=== PATIENT | female | born 1975 | race Caucasian/White ===

== ENCOUNTER → 2017-03-12 | Outpatient (REF) | payer BC ==
[2017-03-12 14:31] LABS: INFLUENZA A AMPLIFICATION NEGATIVE (NEGATIVE); INFLUENZA B AMPLIFICATION NEGATIVE (NEGATIVE); RSV AMPLIFICATION NEGATIVE (NEGATIVE)
== END ==
LOC: M LAB REF 12:57
DX: J11.1 Influenza due to unidentified influenza virus with other respiratory manifestations (principal)
CPT/HCPCS: 87631

== ENCOUNTER 2018-09-15 07:09 | Day surgery (SDC) | payer BC ==
[~2018-09-15] VITALS: Ht 160 cm; Wt 76.4 kg
[2018-09-15] VITALS (8 sets, daily range): BP systolic 125–144; BP diastolic 61–96
[~2018-09-15 07:09] MED LIST: BIOT1TAB PO; LIDOCAINE 1% MDV 20ML VIAL SQ PRN; LR 1,000 ML IV ONE; NEUR300C PO; VITA200028 PO
[2018-09-15 07:24] LABS: HEMATOCRIT 39.6 % (36.0-47.0); HEMOGLOBIN 13.2 g/dl (12.0-15.5); MEAN CORPUSCULAR HEMOGLOBIN 30.6 pg (27.0-33.0); MEAN CORPUSCULAR HGB CONC 33.3 g/dl (32.0-36.5); MEAN CORPUSCULAR VOLUME 91.9 fl (80.0-96.0); PLATELET COUNT, AUTOMATED 177 10^3/uL (150-450); RED BLOOD COUNT 4.31 10^6/uL (4.00-5.40); WHITE BLOOD COUNT 5.4 10^3/uL (4.0-10.0)
[2018-09-15] MEDS ORDERED: MIDAZOLAM INJ 2 MG/2 ML VIAL (J2250) As Ordered ONE (09:54)
[2018-09-15] MEDS ORDERED: dexameTHASONE 4 MG/ML 1ML VIAL (J1100) As Ordered ONE (09:54)
[2018-09-15] MEDS ORDERED: PROPOFOL 200 MG/20 ML VIAL As Ordered ONE ×2 (09:54→11:37)
[2018-09-15] MEDS ORDERED: SUGAMMADEX SODIUM 500 MG/5 ML VIAL (BRIDION) As Ordered ONE (09:54)
[2018-09-15] MEDS ORDERED: ROCURONIUM BROMIDE 50 MG/5 ML VIAL As Ordered ONE ×2 (09:54→10:06)
[2018-09-15] MEDS ORDERED: ACETAMINOPHEN 1000MG 100ML IV BTL (OFIRMEV) (J0131 PER 10MG) As Ordered ONE (09:54)
[2018-09-15] MEDS ORDERED: HYDROmorphone HCL 2 MG/ML 1ML VIAL (J1170) As Ordered ONE (09:54)
[2018-09-15] MEDS ORDERED: LIDOCAINE 2% INJ 100 MG/5 ML SDV (FOR ANES.) As Ordered ONE (09:54)
[2018-09-15] MEDS ORDERED: ONDANSETRON 4MG/2ML VIAL (J2405) As Ordered ONE (09:54)
[2018-09-15] MEDS ORDERED: fentaNYL 100 MCG/2 ML INJECTION (J3010) As Ordered ONE ×2 (09:54→13:06)
[2018-09-15] MEDS ORDERED: KETOROLAC 60 MG/2 ML VIAL (J1885) As Ordered ONE (09:54)
[2018-09-15] MEDS ORDERED: ePHEDrine SULFATE 25 MG/5 ML(5MG/ML) SYRINGE As Ordered ONE (10:01)
[2018-09-15] MEDS ORDERED: METOCLOPRAMIDE INJ 10MG/2ML VIAL (J2765) As Ordered ONE ×2 (10:01→13:06)
[2018-09-15] MEDS ORDERED: GLYCOPYRROLATE INJ 0.2 MG/ML 2 ML VIAL As Ordered ONE (10:14)
[2018-09-15] MEDS ORDERED: LR 1,000 ML IV SCH (12:15)
[2018-09-15] MEDS ORDERED: oxyCODONE 5MG TAB PO PRN (12:15)
[2018-09-15] MEDS ORDERED: MORPHINE 1MG/ML IN 0.9% NACL 100ML IV BAG As Ordered ONE (12:21)
[2018-09-15] MEDS ORDERED: EPIDURAL/PCA KEYS XX PRN (12:30)
[2018-09-15] MEDS ORDERED: diphenhydrAMINE INJ 50MG/ML VIAL (J1200) IV PRN (12:30)
[2018-09-15] MEDS ORDERED: NALOXONE INJ 0.4 MG/1 ML VIAL (J2310) IV PRN (12:30)
[2018-09-15] MEDS ORDERED: NALBUPHINE HCL 10 MG/ML AMP (J2300) IV PRN (12:30)
[2018-09-15] MEDS ORDERED: MORPHINE 1MG/ML IN 0.9% NACL 100ML IV BAG IV PRN (12:30)
[2018-09-15] MEDS: fentaNYL 100 MCG/2 ML INJECTION (J3010) IV PRN ×4 (12:35→12:50)
[2018-09-15] MEDS ORDERED: FLUO20CA19 PO (12:41)
[2018-09-15] MEDS ORDERED: PROMETHAZINE INJ 25 MG/ML VIAL (J2550) As Ordered ONE (13:06)
[2018-09-15] MEDS: fentaNYL 100 MCG/2 ML INJECTION (J3010) IV SCH ×2 (13:10→13:15)
[2018-09-15] MEDS ORDERED: METOCLOPRAMIDE INJ 10MG/2ML VIAL (J2765) IV PRN (13:15)
[2018-09-15] MEDS ORDERED: PROMETHAZINE INJ 25 MG/ML VIAL (J2550) IV PRN (13:15)
[2018-09-15] MEDS: LR 1,000 ML IV SCH ×2 (13:34→20:49)
--- NOTE | 2018-09-15 13:47 | RO ---
DATE OF PROCEDURE: 09/15/2018 PREPROCEDURE DIAGNOSIS: Pain and failed ablation. POSTPROCEDURE DIAGNOSIS: Pain and failed ablation. PROCEDURE: Laparoscopic assisted vaginal hysterectomy with bilateral oophorectomy and salpingectomy, although the patient had a previous tubal, so much of the tube on the right side was already gone. SURGEON: Dr. Francheska Pickering. GROUP CARE WORKER: Kelli Juarez NP ANESTHESIA: General endotracheal anesthesia. SPECIMEN: Uterus, ovaries and tubes. DESCRIPTION OF PROCEDURE: Ne was brought to the operating room where sufficient general endotracheal anesthesia was induced and she was prepped and draped and positioned in the usual sterile fashion. The Maguire with the ability to backfill was placed and the uterine manipulator was placed. Attention was then turned to the abdomen. A transverse semilunar incision was made below the umbilicus and sharp and blunt dissection continued through the subcutaneous tissues to the level of the rectus fascia, which was elevated with a Mary Jo clamps transversely incised under direct visualization and the peritoneum then directly entered under direct visualization in an open laparoscopic technique. 0 Vicryl retention sutures were placed in the fascia. The Nino cannula was placed and it was secured in place with the 0 Vicryl retention sutures and CO2 insufflation was then begun. After adequate CO2 insufflation, the peritoneal cavity was visualized. There were normal shiny peritoneal surfaces throughout. There was some minor adhesions at the descending colon along the left lateral abdomen and pelvis sidewall and these were photographed. They did obscure access to the left ovary briefly so we did take those down. Other than minimal scarring and scar tissue changes of the fallopian tubes and I think one or two fimbria were left after the ovary but there was not a distal fallopian tube on the right side in place. Just scar tissue, again consistent with the patient's previous tubal ligation history. Attention was turned to the dissection with the cold scissors used to down those adhesions on the left side freeing up the bowel so we could have better access to the ovary and with Trendelenburg and uterine manipulator use, we were able to isolate the infundibulopelvic ligaments for which the #44 Enseal articulating dissector was used to cauterize and then transect these pedicles working carefully through the infundibulopelvic ligaments, first on the left side, then the right. Then working through the round ligaments as well, left side than the right and then the cold scissors were used to cut the bladder flap to dissect the broad ligament posteriorly so that we can let the ureters to drop away from the field. Having dissected on top, freed the ovaries and tubes, and round ligaments, and dissected the broad as noted and created the bladder flap, we then turned our attention to the vaginal portion of the case. With the CO2 allowed to escape the abdomen, and the trocar left in place but the instruments removed and attention turned to the pelvis. Working vaginally, the uterine manipulator was removed. Single tooth tenacula were placed on the cervix and the retractor was placed and a circumferential incision was then made around the base of the cervix transecting the vaginal epithelium allowing the isolation of the cardinal ligament which was then clamped, transected and ligated using the Ortega clamps, which were used throughout this portion of the case and 0 Vicryl suture. We then clamped, transected and ligated the uterosacral ligament to the peritoneum posteriorly and then freed the bladder, the dissection of which had already begun above and then the uterine vasculature was carefully clamped transected and ligated in a sequential fashion along the lateral aspect of the uterus until the uterus with the attached ovaries and tubes was free. Angle stitches of 0 Vicryl placed with good approximation of hemostasis and of course the uterosacrals were re-attached. Then the vaginal cuff was closed with a running lock stitch of 0 Vicryl with good approximation and hemostasis achieved, given that we had good hemostasis confirmed from visualization from below, we went ahead and removed the Nino from the umbilicus and closed the fascial wound layer with the 0 Vicryl retention sutures and then closed the skin there with #3-0 Vicryl in a subcuticular stitch and then once all the wounds were closed and good hemostasis achieved and the specimens sent, the procedure was ended. Estimated blood loss for the procedure: About 150 mL. FLUID REPLACEMENT: Crystalloid COMPLICATIONS: None. CONDITION AND DISPOSITION: Ne tolerated the procedure well and was recovering in the recovery room in good condition.
[2018-09-15] MEDS: GABAPENTIN 300 MG CAP PO SCH ×2 (15:19→20:49)
[2018-09-15] MEDS: FLUoxetine 20 MG CAP PO SCH (15:19)
[2018-09-15] MEDS: IBUPROFEN 600 MG TAB PO PRN (18:36)
[2018-09-16] VITALS: BP 137/66
[2018-09-16] MEDS: IBUPROFEN 600 MG TAB PO PRN ×2 (02:19→09:38)
[2018-09-16 04:00] VITALS: BP 117/61
[2018-09-16] MEDS: LR 1,000 ML IV SCH (04:30)
[2018-09-16 05:50] VITALS: BP_SYST 127; BP_SYST 135; BP_SYST 136; BP_DIAS 76; BP_DIAS 77; BP_DIAS 93
[2018-09-16 05:53] LABS: HEMATOCRIT 36.3 % (36.0-47.0); HEMOGLOBIN 11.8 g/dl (12.0-15.5); MEAN CORPUSCULAR HEMOGLOBIN 30.6 pg (27.0-33.0); MEAN CORPUSCULAR HGB CONC 32.5 g/dl (32.0-36.5); PLATELET COUNT, AUTOMATED 223 10^3/uL (150-450); RED BLOOD COUNT 3.86 10^6/uL (4.00-5.40); WHITE BLOOD COUNT 11.6 10^3/uL (4.0-10.0)
[2018-09-16] MEDS ORDERED: NORCO, ANEXSIA 5/325MG TABLET (HYDROcodone/ACETAMINOPHEN) PO PRN (06:00)
[2018-09-16] MEDS: GABAPENTIN 300 MG CAP PO SCH (07:58)
[2018-09-16] MEDS: FLUoxetine 20 MG CAP PO SCH (07:58)
[2018-09-16 08:00] VITALS: BP 140/70
[2018-09-16] MEDS ORDERED: FAMOTIDINE 20 MG TAB PO SCH (09:00)
[2018-09-16] MEDS ORDERED: FLUoxetine 10 MG CAP PO SCH (09:00)
[2018-09-16] MEDS ORDERED: PEPC1TAB5 PO (09:10)
[2018-09-16] MEDS ORDERED: NORC1TAB7 PO (09:10)
[2018-09-16] MEDS ORDERED: IBUP-1022 PO (09:10)
== END 2018-09-16 09:50 | disposition home or self-care (01) ==
LOC: M SDC 07:09 → M PED 13:45 → M SDC 09-16 09:50
PROVIDERS: ATTEND Obstetrics & Gynecology
DX: N94.10 Unspecified dyspareunia (principal); R10.2 Pelvic and perineal pain; N87.9 Dysplasia of cervix uteri, unspecified; N83.11 Corpus luteum cyst of right ovary; N83.12 Corpus luteum cyst of left ovary; M50.30 Other cervical disc degeneration, unspecified cervical region; M51.36 Other intervertebral disc degeneration, lumbar region; Z88.0 Allergy status to penicillin; Z98.51 Tubal ligation status; Z72.0 Tobacco use
CPT/HCPCS: 36415; 58571; 85027; 86850; 86900; 86901; 88307; J0131; J0690; J1100; J1170; J1885; J2250; J2405; J2765; J3010

== ENCOUNTER → 2019-06-15 | Outpatient (CLI) | payer BC ==
[~2019-06-15] MED LIST changes: +FLUO20CA22 PO; +IBUP-1022 PO; -LIDOCAINE 1% MDV 20ML VIAL SQ PRN; -LR 1,000 ML IV ONE; +NORC1TAB7 PO; +PEPC1TAB5 PO
== END ==
LOC: M LABSMTC 12:13
PROVIDERS: ATTEND Family Medicine
DX: Z11.59 Encounter for screening for other viral diseases (principal); Z20.828 Contact with and (suspected) exposure to other viral communicable diseases